=== PATIENT | female | born 1995 | race Hispanic/Latino ===

== ENCOUNTER 2023-03-07 17:59 | Emergency (ER) | payer SELFPAY ==
[2023-03-07 18:41] LABS: Absolute Lymphocytes (CBC) 1.3 K/uL (0.7-4.9); Hematocrit 37.4 % (36.0-45.0); Lymphocytes % 19.2 % (15.3-44.8); MCV 90.4 fL (80-100); MPV 7.8 fL (7.6-11.3); Platelets 276 thou/uL (152-406); RBC Red Blood Cell Count 4.13 M/uL (3.86-4.86)
[2023-03-07] MEDS ORDERED: NA CHLORIDE 0.9% 1,000 ML ONE ×2 (18:41→20:55)
[2023-03-07 18:45] LABS: Specific Gravity 1.005 (1.005-1.030)
[2023-03-07 18:50] LABS: Specific Gravity 1.005 (1.005-1.030); Urine Bacteria <20 /HPF (<20); Urine Bilirubin NEGATIVE (Negative); Urine Blood Negative (Negative); Urine Clarity Turbid (Clear); Urine Color Light-Yellow (Yellow); Urine Glucose NEGATIVE (Negative); Urine Mucus Slight /HPF (None Seen); Urine Protein NEGATIVE (Negative); Urine RBC <5 /HPF (None Seen); Urine Urobilinogen Normal (Normal)
[2023-03-07 19:15] LABS: Potassium 3.7 mEq/L (3.5-5.1)
[2023-03-07 20:08] LABS: Thyroid Stimulating Hormone 1.33 uIU/mL (0.358-3.740)
--- NOTE | 2023-03-07 20:12 | RAD REPORT ---
EXAM DESCRIPTION: US - Matter Chandu Tm 1 - 03/07/2023 7:58 pm CLINICAL HISTORY: with pelvic pain COMPARISON: None FINDINGS: The uterus measures 13 x 9 x 10 centimeter A normal appearing gestational sac is present within the endometrium. Within this is a pole wit h a crown-rump length 4.2 centimeters centimeters. Cardiac activity 167 beats per minute Neither ovary seen secondary to overlying bowel gas The right and left adnexa are unremarkable No significant free fluid is seen. IMPRESSION: Single live intrauterine with an estimated gestational age 11 weeks 1 day CHUCK 09/25/2023
--- NOTE | 2023-03-07 21:27 | ER ---
Nurse's Notes [facility] Name: Óscar Britt Age: 27 yrs Sex: Female : 1995 Arrival Date: 03/07/2023 Time: 17:59 Bed 20 Private MD: Diagnosis: Threatened ;Tachycardia, unspecified Presentation: 03/07 18:10 Chief complaint: Spotty vaginal bleeding and cramping since this morning, pain is worse hb when walking. Reports she is approx 12 weeks , , LMP 12/09, CHUCK 10/05. Coronavirus screen: At this time, the client does not indicate any symptoms associated with coronavirus-19. Ebola Screen: No symptoms or risks identified at this time. Risk Assessment: Do you want to hurt yourself or someone else? Patient reports no desire to harm self or others. Onset of symptoms was March 07, 2023. 18:10 Method Of Arrival: Ambulatory hb 18:10 Acuity: TANI 3 hb 20:14 Initial Sepsis Screen: Does the patient meet any 2 criteria? No. Patient's initial me1 sepsis screen is negative. Does the patient have a suspected source of infection? No. Patient's initial sepsis screen is negative. 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 - Social history:: Smoking status: Patient denies any tobacco usage or history of. Screenin:45 [facility] ED Fall Risk Assessment (Adult) History of falling in the last 3 months, cm10 including since admission No falls in past 3 months (0 pts) Confusion or Disorientation No (0 pts) Intoxicated or Sedated No (0 pts) Impaired Gait No (0 pts) Mobility Assist Device Used No (0 pt) Altered Elimination No (0 pt) Score/Fall Risk Level 0 - 2 = Low Risk. Abuse screen: Denies threats or abuse. Nutritional screening: No deficits noted. Tuberculosis screening: No symptoms or risk factors identified. Assessment: 18:45 General: Appears comfortable, well groomed, well developed, well nourished, Behavior is cm10 calm, cooperative, appropriate for age, Reports cramping and spotty bleeding that started this morning. pain is worse when walking. Reports she is 12 weeks . Denies fever, feeling ill, fatigue, chills. Pain: Complains of pain in suprapubic area Pain does not radiate. Pain currently is 4 out of 10 on a pain scale. Quality of pain is described as crampy, Pain began gradually, this morning. Neuro: Level of Consciousness is awake, alert, obeys commands, Oriented to person, place, time, situation, Appropriate for age. Cardiovascular: Capillary refill < 3 seconds Patient's skin is warm and dry. Cardiovascular: Capillary refill < 3 seconds Patient's skin is warm and dry. Respiratory: Airway is patent Respiratory effort is even, unlabored, Respiratory pattern is regular, symmetrical. : Denies burning with urination. 21:39 Reassessment: Patient and/or family updated on plan of care and expected duration. Pain me1 level reassessed. Patient is alert, oriented x 3, equal unlabored respirations, skin warm/dry/pink. Patient states feeling better. Patient states symptoms have improved. Vital Signs: 18:10 BP 162 / 102; Pulse 123; Resp 16; Temp 98.1; Pulse Ox 100% ; Weight 61.23 kg; Height 5 hb ft. 6 in. ; Pain 6/10; 18:49 BP 132 / 79; Pulse 96; Resp 16; Pulse Ox 100% on R/A; cm10 20:13 BP 129 / 81; Pulse 114; Resp 18; Pulse Ox 98% on R/A; me1 21:00 BP 115 / 75; Pulse 107; Resp 16; Pulse Ox 100% on R/A; me1 21:30 BP 113 / 70; Pulse 110; Resp 18; Pulse Ox 100% ; me1 18:10 Body Mass Index 21.79 (61.23 kg, 167.64 cm) hb 18:10 Pain Scale: Adult hb ED Course: 18:02 Patient arrived in ED. im 18:06 Sonam Smith FNP-C is [facility]. snw 18:06 Yonis Camarena MD is Attending Physician. snw 18:10 Arm band placed on Patient placed in waiting room. me1 18:12 Triage completed. hb 18:26 Inserted saline lock: 22 gauge in right antecubital area, using aseptic technique. ds4 Blood collected. 18:38 Urinalysis w/ reflexes Sent. kc6 18:38 Test, Urine Sent. kc6 18:43 Ruth Ann Lan, RN is Primary Nurse. cm10 18:45 No provider procedures requiring assistance completed. IV is patent. cm10 18:45 Allergy band placed. Bed in low position. Call light in reach. Side rails up X 1. cm10 Provided Education on: POC. Verbalized understanding. . 20:00 Matter Eval Tm 1 In Process Unspecified. EDMS 21:53 IV discontinued, intact, bleeding controlled, No redness/swelling at site. Pressure me1 dressing applied. Administered Medications: 18:38 Drug: NS 0.9% IV 1000 ml Route: IV; Rate: 1 bolus; Site: right antecubital; kc6 20:48 Follow up: IV Status: Completed infusion; IV Intake: 1000ml me1 20:48 Drug: NS 0.9% IV 1000 ml Route: IV; Rate: 1 bolus; Site: right antecubital; me1 21:52 Follow up: Response: No adverse reaction; IV Status: Completed infusion; IV Intake: me1 500ml Medication: 18:45 VIS not applicable for this client. cm10 Point of Care Testing: Urine : 20:17 n/a me1 Intake: 20:48 IV: 1000ml; Total: 1000ml. me1 21:52 IV: 500ml; Total: 1500ml. me1 Outcome: 21:27 Discharge ordered by . snw 21:53 Discharged to home ambulatory, with family. me1 21:53 Condition: good 21:53 Discharge instructions given to patient, Instructed on discharge instructions, follow up and referral plans. Demonstrated understanding of instructions, follow-up care. 21:54 Patient left the ED. me1 Signatures: Dispatcher [employer] Sonam Chu, TREASURY ASSISTANT-C TREASURY ASSISTANT-Csnw Ivan Calles ds4 Silke Dee, CHRISTOPHER WHITE Urmila Mcnair RN RN kc6 Cris Maddox Clarissa, RN RN cm10 Priscilla Marquez RN RN me1
--- NOTE | 2023-03-07 21:27 | EDPHYS ---
Physician Documentation [facility] Name: Óscar Britt Age: 27 yrs Sex: Female : 1995 Arrival Date: 03/07/2023 Time: 17:59 Bed 20 Private MD: ED Physician Yonis Camarena HPI: 03/07 18:17 This 27 yrs old Female presents to ER via Ambulatory with complaints of Vaginal snw Bleeding, + Preg <12wks, Vaginal Pain. 18:17 The patient presents with urinary symptoms, vaginal bleeding that is spotting. Onset: snw The symptoms/episode began/occurred acutely. Associated signs and symptoms: Pertinent positives: cramping, vaginal bleeding. 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 - Social history:: Smoking status: Patient denies any tobacco usage or history of. ROS: 18:16 Constitutional: Negative for fever, chills, and weight loss, Eyes: Negative for injury, snw pain, redness, and discharge, ENT: Negative for injury, pain, and discharge, Neck: Negative for injury, pain, and swelling, Cardiovascular: Negative for chest pain, palpitations, and edema, Respiratory: Negative for shortness of breath, cough, wheezing, and pleuritic chest pain, Abdomen/GI: Negative for abdominal pain, nausea, vomiting, diarrhea, and constipation, Back: Negative for injury and pain, MS/Extremity: Negative for injury and deformity, Skin: Negative for injury, rash, and discoloration, Neuro: Negative for headache, weakness, numbness, tingling, and seizure, Psych: Negative for depression, anxiety, suicide ideation, homicidal ideation, and hallucinations. 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 Exam: 18:15 Constitutional: This is a well developed, well nourished patient who is awake, alert, snw and in no acute distress. Head/Face: Normocephalic, atraumatic. Eyes: Pupils equal round and reactive to light, extra-ocular motions intact. Lids and lashes normal. Conjunctiva and sclera are non-icteric and not injected. Cornea within normal limits. Periorbital areas with no swelling, redness, or edema. ENT: Nares patent. No nasal discharge, no septal abnormalities noted. Tympanic membranes are normal and external auditory canals are clear. Oropharynx with no redness, swelling, or masses, exudates, or evidence of obstruction, uvula midline. Mucous membranes moist. Neck: Trachea midline, no thyromegaly or masses palpated, and no cervical lymphadenopathy. Supple, full range of motion without nuchal rigidity, or vertebral point tenderness. No Meningismus. Chest/axilla: Normal chest wall appearance and motion. Nontender with no deformity. No lesions are appreciated. 18:15 Respiratory: Lungs have equal breath sounds bilaterally, clear to auscultation and percussion. No rales, rhonchi or wheezes noted. No increased work of breathing, no retractions or nasal flaring. Back: No spinal tenderness. No costovertebral tenderness. Full range of motion. Skin: Warm, dry with normal turgor. Normal color with no rashes, no lesions, and no evidence of cellulitis. MS/ Extremity: Pulses equal, no cyanosis. Neurovascular intact. Full, normal range of motion. Neuro: Awake and alert, GCS 15, oriented to person, place, time, and situation. Cranial nerves II-XII grossly intact. Motor strength 5/5 in all extremities. Sensory grossly intact. Cerebellar exam normal. Normal gait. Psych: Awake, alert, with orientation to person, place and time. Behavior, mood, and affect are within normal limits. 18:15 Cardiovascular: Rate: tachycardic, Rhythm: regular, Pulses: no pulse deficits are appreciated, Heart sounds: normal. 18:15 Abdomen/GI: Inspection: abdomen appears normal, Bowel sounds: normal, Palpation: moderate abdominal tenderness, in the suprapubic area. Vital Signs: 18:10 BP 162 / 102; Pulse 123; Resp 16; Temp 98.1; Pulse Ox 100% ; Weight 61.23 kg; Height 5 hb ft. 6 in. ; Pain 6/10; 18:49 BP 132 / 79; Pulse 96; Resp 16; Pulse Ox 100% on R/A; cm10 20:13 BP 129 / 81; Pulse 114; Resp 18; Pulse Ox 98% on R/A; me1 21:00 BP 115 / 75; Pulse 107; Resp 16; Pulse Ox 100% on R/A; me1 21:30 BP 113 / 70; Pulse 110; Resp 18; Pulse Ox 100% ; me1 18:10 Body Mass Index 21.79 (61.23 kg, 167.64 cm) hb 18:10 Pain Scale: Adult hb MDM: 18:15 Differential diagnosis: ectopic , urinary tract infection. Data reviewed: snw vital signs, nurses notes. Counseling: I had a detailed discussion with the patient and/or guardian regarding the historical points, exam findings, and any diagnostic results supporting the discharge/admit diagnosis. 18:21 Patient medically screened. snw 20:27 Response to treatment: the patient's symptoms have mildly improved after treatment. [facility] 03/07 18:07 Order name: Abo/rh Typing; Complete Time: 20:23 sn 03/07 18:07 Order name: Basic Metabolic Panel; Complete Time: 20:23 snw 03/07 18:07 Order name: CBC with Diff; Complete Time: 19:03 snw 03/07 18:07 Order name: Test, Urine; Complete Time: 19:03 snw 03/07 18:07 Order name: Quantitative Hcg; Complete Time: 20:23 snw 03/07 18:07 Order name: Urinalysis w/ reflexes; Complete Time: 19:03 [facility] 03/07 19:52 Order name: Thyroid Stimulating Hormone; Complete Time: 20:23 EDWV 03/07 20:00 Order name: Matter Eval Tm 1; Complete Time: 20:23 EDWV 03/07 18:07 Order name: IV Saline Lock; Complete Time: 18:26 snw 03/07 18:07 Order name: Labs collected and sent; Complete Time: 18:26 snw 03/07 18:07 Order name: NPO; Complete Time: 18:29 snw Administered Medications: 18:38 Drug: NS 0.9% IV 1000 ml Route: IV; Rate: 1 bolus; Site: right antecubital; kc6 20:48 Follow up: IV Status: Completed infusion; IV Intake: 1000ml [facility] [place] 20:48 Drug: NS 0.9% IV 1000 ml Route: IV; Rate: 1 bolus; Site: right antecubital; me1 21:52 Follow up: Response: No adverse reaction; IV Status: Completed infusion; IV Intake: me1 500ml Point of Care Testing: Urine : 20:17 n/a me1 Disposition Summary: 03/07/23 21:27 Discharge Ordered Location: Home snw Condition: Stable snw Diagnosis - Threatened snw - Tachycardia, unspecified snw Followup: snw - With: Emergency Department - When: As needed - Reason: Worsening of condition Followup: snw - With: Private Physician - When: 5 - 6 days - Reason: Recheck today's complaints, Continuance of care, Re-evaluation by your physician Discharge Instructions: - Discharge Summary Sheet snw - Care snw - Threatened Miscarriage snw - Vaginal Bleeding During , First Trimester snw - and the Partner's Role snw - How A Baby Grows During snw - Sinus Tachycardia snw - Preventing Injuries During snw Forms: - Medication Reconciliation Form snw - Thank You Letter snw - Antibiotic Education snw - Prescription Opioid Use snw - Patient Portal Instructions snw - Leadership Thank You Letter snw Signatures: Dispatcher [employer] EDSonam Callahan, WOOL PRESSER-C WOOL PRESSER-Csnw Silke Dee, RN RN Urmila Mcnair RN RN kc6 Ruth Ann Lan, RN RN cm10 Priscilla Marquez, CHRISTOPHER RN me1 Corrections: (The following items were deleted from the chart) 19:52 18:15 THYROID STIMULAT HORMONE+C.LAB.BRZ ordered. EDMS EDMS 20:00 18:15 Transvaginal Ob+US.RAD.BRZ ordered. EDMS EDMS
[2023-03-07 22:36] VITALS: TEMP 98.1; O2SAT 100
[2023-03-07 22:40] VITALS: BP 113/70
== END 2023-03-07 21:54 | disposition home or self-care (01) ==
LOC: ER 17:59
DX: O20.0 Threatened abortion (principal); R00.0 Tachycardia, unspecified; Z3A.11 11 weeks gestation of pregnancy
CPT/HCPCS: 36415; 76801; 80048; 81001; 81025; 84443; 84702; 85025; 86900; 86901; 96360; 96361; 99284; J7030